=== PATIENT | female | born 1950 | race Two or more races ===

== ENCOUNTER 2019-01-15 11:20 | Inpatient (IN) | payer MEDICARE, BC ==
[~2019-01-15] VITALS: Ht 170.2 cm; Wt 73.5 kg
--- NOTE | 2019-01-15 17:30 | NUR ---
Admitted from [facility] for Intracranial/ Intraparenchymal Hemorrhage. Arrived in unit per destiny accompanied by EMT and sister. Not in any form of distress. Patient alert awake x4. NIHSS scale of 2. Not in any form of distress, no visual loss, headache, SOB or chest pains noted. With left upper arm weakness. Oriented to unit, therapy and use of call light. Routine admission care done. Informed Dr. Nathan of admission.
[2019-01-15] MEDS ORDERED: MAGNESIUM HYDROXIDE 30 ML LIQUID UDC PO PRN (18:00)
[2019-01-15] MEDS ORDERED: ALPR0.255 PO (18:51)
[2019-01-15] MEDS ORDERED: ACET-2154 PO (18:51)
[2019-01-15] MEDS ORDERED: CHOL50002 PO (18:51)
[2019-01-15] MEDS ORDERED: CALC-903 PO (18:51)
[2019-01-15] MEDS ORDERED: LEVE500T9 PO (18:51)
--- NOTE | 2019-01-15 19:00 | NUR ---
Received call back from Dr. Alonzo for medication reconciliation and Dr rowe to continue previous medications.
--- NOTE | 2019-01-15 19:00 | NUR ---
Received patient awake during initial rounds. Son at bedside. Denies any pain/discomforts at this time. Left sided weakness noted. safety measure and fall precaution maintained. Continue care as planned.
[2019-01-15] MEDS ORDERED: ACETAMINOPHEN 325 MG TABLET PO PRN (19:30)
[2019-01-15 20:35] VITALS: BP 128/79
[2019-01-15] MEDS: LEVETIRACETAM 500 MG TABLET PO SCH (20:42)
[2019-01-16 06:52] VITALS: BP 101/63
--- NOTE | 2019-01-16 06:59 | NUR ---
Shift End Report: Slept good. VS stable. No complaint presented all night. All needs attended and met. No significant event reported. Continue current rehab plan of care.
[2019-01-16 08:06] VITALS: BP 106/62
[2019-01-16] MEDS: LEVETIRACETAM 500 MG TABLET PO SCH ×3 (08:54→17:00)
[2019-01-16] MEDS: CALCIUM CARBONATE 600 MG TABLET PO SCH (08:54)
[2019-01-16] MEDS: CHOLECALCIFEROL 1,000 UNIT TABLET PO SCH (08:54)
[2019-01-16] MEDS ORDERED: CHOLECALCIFEROL 5000 UNIT PO SCH (09:00)
--- NOTE | 2019-01-16 09:13 | NUR ---
Received pt. in bed in no distress. A/OX4 verbally responsive and able to make her needs known. All due medications given and tolerated well. Pt. showered this AM. No new skin condition noted. No seizure activity noted, on Keppra. All pt. needs attended and met promptly. Safety measures in place. Call light and all frequently used items within pt. reach. Will continue to monitor accordingly.
[2019-01-16 17:04] VITALS: BP 90/58
--- NOTE | 2019-01-16 18:00 | NUR ---
Received clarification of order for Abdifatah from Dr. Diez. Order change from BID to Q12H with same dosage. All orders noted and carried out. Pt. made aware.
--- NOTE | 2019-01-16 18:13 | NUR ---
End of shift note: No significant change during this shift. All needs attended and met promptly. Safety measures in placed. Bed in low position, brake on, side rails up x2 as an enabler. Call light and all frequently used items within pt. reach. Will endorse to next shift accordingly.
--- NOTE | 2019-01-16 19:00 | NUR ---
Awake, in bed with HOB elevated. Denies any pain/discomforts at this time. LUE still weak but with good patients transporter noted. Daughter at bedside. safety measure and fall precaution maintained. Continue care as planned.
[2019-01-16 19:26] VITALS: BP 118/64
[2019-01-16] MEDS: LEVETIRACETAM 250 MG TABLET PO SCH (20:26)
[2019-01-16] MEDS ORDERED: LEVETIRACETAM 500 MG TABLET PO SCH (21:00)
[2019-01-17 05:44] VITALS: BP 103/67
--- NOTE | 2019-01-17 05:51 | NUR ---
Shift End Report: VSS. Slept good. No complaint presented all night. All needs attended and met. NO significant event reported. Continue current rehab plan of care.
[2019-01-17] MEDS: CALCIUM CARBONATE 600 MG TABLET PO SCH (09:01)
[2019-01-17] MEDS: LEVETIRACETAM 250 MG TABLET PO SCH ×2 (09:01→20:38)
[2019-01-17] MEDS: CHOLECALCIFEROL 1,000 UNIT TABLET PO SCH (09:01)
[2019-01-17 09:04] VITALS: BP 101/47
--- NOTE | 2019-01-17 09:31 | NUR ---
Received pt. in bed in no distress. A/OX4 verbally responsive and able to make her needs known. All due medications given and tolerated well. PNo new skin condition noted. No seizure activity noted, on Keppra. Requesting Vit C 500 mg PO QD for supplement, will notify MD. All pt. needs attended and met promptly. Safety measures in place. Call light and all frequently used items within pt. reach. Will continue to monitor accordingly.
--- NOTE | 2019-01-17 10:27 | NUR ---
Received order Vit C 500 mg PO QD order from Dr. Nathan. Orders noted and carried out accordingly. Pt. made aware and thankful.
[2019-01-17 16:41] VITALS: BP 96/47
--- NOTE | 2019-01-17 18:07 | NUR ---
End of shift note: No significant change during this shift. Seen by Dr. Nathan this PM. All needs attended and met promptly. Safety measures in placed. Bed in low position, brake on, side rails up x2 as an enabler. Call light and all frequently used items within pt. reach. Will endorse to next shift accordingly.
--- NOTE | 2019-01-17 19:00 | NUR ---
Awake, watching TV at this time. Denies any pain/discomforts. Safety measure and afll precaution maintained. Continue care as planned.
[2019-01-17 19:35] VITALS: BP 103/67
--- NOTE | 2019-01-18 05:33 | NUR ---
Shift End Report: VS stable. Very needy. Slept intermittently. No complaint of pain/discomforts presented. All needs attended and met. No significant event reported all night. Continue current rehab plan of care.
[2019-01-18 06:33] VITALS: BP 101/63
[2019-01-18 07:58] LABS: BASOPHILS % (AUTO) 0.9 % (0.0-2.0); EOSINOPHILS # (AUTO) 0.2 K/uL (0.0-0.7); EOSINOPHILS % (AUTO) 3.3 % (0.0-7.0); HEMATOCRIT 43.2 % (31.2-41.9); HEMOGLOBIN 14.3 g/dL (10.9-14.3); LYMPHOCYTES # (AUTO) 1.9 K/uL (20.0-40.0); MEAN CORPUSCULAR HEMOGLOBIN 30.4 uug (24.7-32.8); MEAN CORPUSCULAR HGB CONC 33 g/dL (32.3-35.6); MEAN CORPUSCULAR VOLUME 91.8 fL (75.5-95.3); MONOCYTES # (AUTO) 0.3 K/uL (2.0-10.0); MONOCYTES % (AUTO) 7.1 % (0.0-11.0); NEUTROPHILS # (AUTO) 2.1 K/uL (1.8-8.9); NEUTROPHILS % (AUTO) 46.7 % (38.5-71.5); PLATELET COUNT (AUTO) 275 K/uL (179-408); RED BLOOD CELL COUNT(AUTO) 4.71 MIL/uL (3.63-4.92); WHITE BLOOD COUNT (AUTO) 4.5 K/uL (3.8-11.8)
--- NOTE | 2019-01-18 08:00 | NUR ---
Received patient, awake, alert x4. No pain noted. Not in any form of distress. On room air sating well. With baseline LOC. No new weakness, still with weakness over left upper arm. Assisted to bathroom, with stable gait using FWW.
[2019-01-18 08:09] LABS: CREATININE 0.7 mg/dL (0.6-1.3); POTASSIUM 4.6 mmol/L (3.5-5.1)
[2019-01-18 09:00] VITALS: BP 102/51
[2019-01-18] MEDS: CHOLECALCIFEROL 1,000 UNIT TABLET PO SCH (09:05)
[2019-01-18] MEDS: LEVETIRACETAM 250 MG TABLET PO SCH ×2 (09:05→20:32)
[2019-01-18] MEDS: CALCIUM CARBONATE 600 MG TABLET PO SCH (09:05)
[2019-01-18] MEDS: ASCORBIC ACID 500 MG TABLET PO SCH (09:05)
--- NOTE | 2019-01-18 10:10 | NUR ---
Up with physical therapy, tolerating well. No pain noted. No SOB or chest pains. Able to ambulate to rehab gym with front wheel walker with assist.
--- NOTE | 2019-01-18 16:02 | NUR ---
INDIVIDUALIZE PLAN OF CARE
[2019-01-18 17:00] VITALS: BP 121/58
[2019-01-18] MEDS: ALPRAZOLAM 0.25 MG TABLET PO PRN (18:53)
[2019-01-18 20:12] VITALS: BP 104/54
[2019-01-19] MEDS: ALPRAZOLAM 0.25 MG TABLET PO PRN ×2 (02:36→21:59)
--- NOTE | 2019-01-19 05:06 | NUR ---
received patient alert and oriented x4 OOB with walker to the BR. Voiding freely. needs attended. Denies any pain nor any discomfort. VSS. On fall precautions. Call pringle within reach. Siderails up for safety.
[2019-01-19 06:06] VITALS: BP 120/45
[2019-01-19 08:34] VITALS: BP 110/53
[2019-01-19] MEDS: ASCORBIC ACID 500 MG TABLET PO SCH (08:49)
[2019-01-19] MEDS: CHOLECALCIFEROL 1,000 UNIT TABLET PO SCH (08:49)
[2019-01-19] MEDS: LEVETIRACETAM 250 MG TABLET PO SCH ×2 (08:49→20:31)
[2019-01-19] MEDS: CALCIUM CARBONATE 600 MG TABLET PO SCH (08:50)
--- NOTE | 2019-01-19 09:30 | NUR ---
Received pt. in bed in no distress. A/OX4 verbally responsive and able to make her needs known. All due medications given and tolerated well. No new skin condition noted. No seizure activity noted, on Keppra. All pt. needs attended and met promptly. Safety measures in place. Call light and all frequently used items within pt. reach. Will continue to monitor accordingly.
--- NOTE | 2019-01-19 11:47 | NUR ---
INTERDISCIPLINARY TEAM CONFERENCE
[2019-01-19 16:14] VITALS: BP 90/57
[2019-01-19 20:08] VITALS: BP 115/59
[2019-01-19] MEDS: ACETAMINOPHEN ES 500 MG TABLET PO PRN (21:32)
[2019-01-20 05:00] VITALS: BP 116/74
--- NOTE | 2019-01-20 07:30 | NUR ---
PATIENT IS AWAKE, ALERT, ORIENTED X4, VERBALLY RESPONSIVE USING TOILET, NO SOB, NO ACUTE DISTRESS NOTED
[2019-01-20] MEDS: ACETAMINOPHEN ES 500 MG TABLET PO PRN (07:54)
[2019-01-20 08:00] VITALS: BP 117/58
[2019-01-20] MEDS: LEVETIRACETAM 250 MG TABLET PO SCH ×2 (08:51→20:42)
[2019-01-20] MEDS: CHOLECALCIFEROL 1,000 UNIT TABLET PO SCH (08:51)
[2019-01-20] MEDS: CALCIUM CARBONATE 600 MG TABLET PO SCH (08:51)
[2019-01-20] MEDS: ASCORBIC ACID 500 MG TABLET PO SCH (08:51)
--- NOTE | 2019-01-20 11:54 | NUR ---
PATIENT IS ALERT, ORIENTED X4, VERBALLY RESPONSIVE, NO SOB, RESP EVEN NONLABORED,SKIN WARM AND DRY TO TOUCH, TOLERATED MEALS AND MEDS WELL, PATIENT STATED LAST NIGHT IN THE BATHROOM WHILE SHE WAS TRYING TO MOVE AROUND AND WAS TRYING TO GET UP FROM TOILET, SLIGHTLY HIT HER RIGHT SIDE OF HEAD TO THE WALL, HOWEVER UPON ASSESSMENT, NO RAISED BUMP NOTED, AND PATIENT STATED SHE FEELS FINE. NO ACUTE DISTRESS NOTED.
--- NOTE | 2019-01-20 12:01 | NUR ---
PATIENT REQUESTED TO GET SHOWER, OFFERED TO GIVE HER SHOWER THREE TIMES, PATIENT KEPT SAYING LATER, SHE IS NOT READY ELLEN
--- NOTE | 2019-01-20 18:00 | NUR ---
patient is alert, oriented x4, verbally responsive, no sob,resp even nonlabored,skin warm and dry to touch, patient calls for the assistance to the bathroom, provided assistance as needed through out the day, requested shower, stated that she wants her shower first patient stated 10am, then she said no, later, offered again and patient again stated not yet because she feels tired, shower given around 3pm, patient calls nurse in her room frequently such as to fix her pillow, take her shocks off and then put her shocks on again, fix my blanket, move the table here and then there, put my clothes in the closet, fix my closet, patient states that stay very close to me when I am in the bathroom, put the toilet sheet on the toilet and tear the paper the way she wants etc, all the needs attended timely. call light with in reach all the time.
[2019-01-20 20:00] VITALS: BP 119/53
--- NOTE | 2019-01-20 20:00 | NUR ---
Received patient awake and alert. Patient is A/Ox4. No signs of acute distress noted. No complaints of pain or SOB. Standby assist given when patient goes to restroom with walker, noted with some left sided weakness. Safety measures initiated. Bed is low and locked, call light within reach. Will continue to monitor.
[2019-01-21] MEDS: ALPRAZOLAM 0.25 MG TABLET PO PRN (01:32)
[2019-01-21 05:35] VITALS: BP 107/50
--- NOTE | 2019-01-21 05:47 | NUR ---
Patient slept well throughout shift. No acute distress noted. Patient ambulated to restroom x4. All needs were met. Medication given as ordered. Safety measures given.
--- NOTE | 2019-01-21 07:30 | NUR ---
patient is in bed awake no sob, no acute distress noted
[2019-01-21 08:00] VITALS: BP 125/65
[2019-01-21] MEDS: ASCORBIC ACID 500 MG TABLET PO SCH (08:35)
[2019-01-21] MEDS: LEVETIRACETAM 250 MG TABLET PO SCH ×2 (08:36→20:43)
[2019-01-21] MEDS: CHOLECALCIFEROL 1,000 UNIT TABLET PO SCH (08:36)
[2019-01-21] MEDS: CALCIUM CARBONATE 600 MG TABLET PO SCH (08:36)
[2019-01-21 16:00] VITALS: BP 110/62
--- NOTE | 2019-01-21 16:45 | NUR ---
patient is alert, oriented x4, verbally responsive, no sob,respirations are even nonlabored,skin warm and dry to touch, patient denied any pain, no acute distress noted, assisted to the bathroom as needed, good pericare provided, patient is very needy, calls to nurses station frequently even the nurse just left the room and needs met, yerahs nurses name when sees them passing by and states, " hey Excuse me come here" kept safe and all needs attended timely.
--- NOTE | 2019-01-21 18:07 | NUR ---
paged dr yin for patient request to have xanax twice a day as needed instead of once a day. waiting for call back.
--- NOTE | 2019-01-21 18:29 | NUR ---
received order from dr mann to give xanax 0.25mg one time now.
[2019-01-21] MEDS ORDERED: ALPRAZOLAM 0.25 MG TABLET PO ONE (18:30)
[2019-01-21 19:36] VITALS: BP 101/54
[2019-01-22 06:36] VITALS: BP 113/59
--- NOTE | 2019-01-22 06:42 | NUR ---
aaox4 OOB with walker with supervision to the BR. Voiding frequently without any difficulty. VSS. Needs attended. Left side weakness noted. Tolerated po meds well. No complaints of pain nor any discomfort.Fall precautions maintained. Siderails up for safety.Call pringle within reach.
[2019-01-22 08:30] VITALS: BP 110/60
[2019-01-22] MEDS: CHOLECALCIFEROL 1,000 UNIT TABLET PO SCH (08:45)
[2019-01-22] MEDS: CALCIUM CARBONATE 600 MG TABLET PO SCH (08:45)
[2019-01-22] MEDS: LEVETIRACETAM 250 MG TABLET PO SCH ×2 (08:45→20:34)
[2019-01-22] MEDS: ASCORBIC ACID 500 MG TABLET PO SCH (08:45)
--- NOTE | 2019-01-22 09:00 | NUR ---
Received pt. in bed in no distress. A/OX4 verbally responsive and able to make her needs known. All due medications given and tolerated well. No new skin condition noted. Voiding well with BRP, ambulatory with FWW and standby assist. No seizure activity noted, on Keppra. All pt. needs attended and met promptly. Safety measures in place. Call light and all frequently used items within pt. reach. Will continue to monitor accordingly.
[2019-01-22 16:08] VITALS: BP 129/59
--- NOTE | 2019-01-22 18:25 | NUR ---
End of shift note: No significant change during this shift. Pt. seen by Dr. Nathan this PM. All needs attended and met promptly. Safety measures in placed. Bed in low position, brake on, side rails up x2 as an enabler. Call light and all frequently used items within pt. reach. Will endorse to next shift accordingly.
[2019-01-22 19:58] VITALS: BP 112/73
--- NOTE | 2019-01-23 04:20 | NUR ---
Resting in bed upon initial rounds. aaox4 OOB to the BR with walker with standby assist. Needs attended. Left side weakness noted. Fall precautions maintained. Call pringle within reach. VSS. Tolerated po meds well.On Kepra. no seizure activity noted. Kept comfortable. Siderails up for safety. No complaints presented during the shift.
[2019-01-23 06:20] VITALS: BP 106/61
[2019-01-23 08:30] VITALS: BP 117/46
[2019-01-23] MEDS: CALCIUM CARBONATE 600 MG TABLET PO SCH (08:30)
[2019-01-23] MEDS: CHOLECALCIFEROL 1,000 UNIT TABLET PO SCH (08:30)
[2019-01-23] MEDS: ASCORBIC ACID 500 MG TABLET PO SCH (08:30)
[2019-01-23] MEDS: LEVETIRACETAM 250 MG TABLET PO SCH ×2 (08:30→20:25)
[2019-01-23 16:32] VITALS: BP 120/64
--- NOTE | 2019-01-23 19:10 | NUR ---
Awake in bed during initial rounds. Vert talkative, Denies any pain/discomforts at this time but complaining of feeling so tired. Safety measure and fall precaution maintained. Continue care as planned.
[2019-01-23 20:00] VITALS: BP 134/57
[2019-01-23] MEDS: ACETAMINOPHEN ES 500 MG TABLET PO PRN (22:38)
--- NOTE | 2019-01-23 22:39 | NUR ---
Medicated with Tylenol 500mg 1 tab for complaint of legs discomforts. Will monitor.
[2019-01-24 06:27] VITALS: BP 104/64
[2019-01-24] MEDS: LEVETIRACETAM 250 MG TABLET PO SCH ×2 (08:22→20:41)
[2019-01-24] MEDS: CALCIUM CARBONATE 600 MG TABLET PO SCH (08:22)
[2019-01-24] MEDS: CHOLECALCIFEROL 1,000 UNIT TABLET PO SCH (08:22)
[2019-01-24] MEDS: ASCORBIC ACID 500 MG TABLET PO SCH (08:22)
[2019-01-24 09:19] VITALS: BP 98/58
--- NOTE | 2019-01-24 09:25 | NUR ---
Received pt sitting at edge of bed in no distress. A/OX4 verbally responsive and able to make her needs known. All due medications given and tolerated well. No new skin condition noted. No seizure activity noted, on Keppra. Ambulatory with use of FWW, standby assist. All pt. needs attended and met promptly. Safety measures in place. Call light and all frequently used items within pt. reach. Will continue to monitor accordingly.
[2019-01-24 16:00] VITALS: BP 103/46
--- NOTE | 2019-01-24 18:08 | NUR ---
End of shift note: No significant change during this shift. All needs attended and met promptly. Pt. requesting to ambulate by herself, educated pt. the importance having someone for standby assist due to her unsteady gait. Pt. verbalized clear understanding. Re-emphasized use of call light system for assistance. Safety measures in placed. Bed in low position, brake on, side rails up x2 as an enabler. Call light and all frequently used items within pt. reach. Will endorse to next shift accordingly.
[2019-01-24 19:40] VITALS: BP 100/54
--- NOTE | 2019-01-24 19:43 | NUR ---
Patient received sitting in bed, AAO x4. Able to make needs known. No acute distress or SOB noted. On room air. No Complain of pain at this time. Physical assessment done. stroke assessment performed. Safety measures observed. Fall precaution maintained. Bed in low position, side rails up x2 for safety, brake and alarm on. call light and personal belongings within reach. Continue to monitor.
[2019-01-24] MEDS: ACETAMINOPHEN ES 500 MG TABLET PO PRN (23:05)
[2019-01-25 06:56] VITALS: BP 93/49
--- NOTE | 2019-01-25 07:05 | NUR ---
End of the shift note Patient was stable throughout the shift and has a good sleep last night. No acute distress or SOB noted. On room air. No Complain of pain. All due medication given as ordered. Checked Vital Signs. Physical assessment done. Dressing changed. Assisted her to the bathroom as needed. Safety measures observed. Fall precaution maintained. Bed in low position, side rails up x2 for safety, brake and alarm on. call light and personal belongings within reach. Continue to monitor and will endorse to the day shift nurse accordingly.
[2019-01-25] MEDS: ASCORBIC ACID 500 MG TABLET PO SCH (08:26)
[2019-01-25] MEDS: CHOLECALCIFEROL 1,000 UNIT TABLET PO SCH (08:26)
[2019-01-25] MEDS: LEVETIRACETAM 250 MG TABLET PO SCH ×2 (08:28→20:49)
[2019-01-25] MEDS: CALCIUM CARBONATE 600 MG TABLET PO SCH (08:28)
[2019-01-25 09:00] VITALS: BP 109/62
--- NOTE | 2019-01-25 10:11 | NUR ---
Patient noted being assisted to restroom at this time, no complaints of pain, no signs of distress noted, assisted to bed side for breakfast, took all AM medications, call light in reach, bed locked and in lowest position
[2019-01-25 17:00] VITALS: BP 112/66
--- NOTE | 2019-01-25 19:05 | NUR ---
Awake during initial rounds. Very pleasant and cooperative with care. Denies any pain/discomforts at this time. Safety measure and fall precaution maintained. Continue care as planned.
[2019-01-25 19:51] VITALS: BP 121/42
[2019-01-26] MEDS: ACETAMINOPHEN ES 500 MG TABLET PO PRN (04:33)
--- NOTE | 2019-01-26 04:34 | NUR ---
Medicated with Tylenol ES for complaint of Sinus pain. Will monitor.
[2019-01-26 06:12] VITALS: BP 105/50
--- NOTE | 2019-01-26 06:20 | NUR ---
Shift End Report: Slept in between care. Assisted and attended all needs. No fall/injury reported. Pain medication effective. No further complaint presented. No significant event reported. Continue current rehab of care.
--- NOTE | 2019-01-26 08:30 | NUR ---
Received patient, awake, alert x4, resting in bed. No pain noted. Not in any form of distress, no new weakness noted with baseline LOC. No headache noted. Up for occupational therapy, morning care done.
[2019-01-26 09:00] VITALS: BP 121/58
[2019-01-26] MEDS: LEVETIRACETAM 250 MG TABLET PO SCH (09:20)
[2019-01-26] MEDS: CHOLECALCIFEROL 1,000 UNIT TABLET PO SCH (09:20)
[2019-01-26] MEDS: CALCIUM CARBONATE 600 MG TABLET PO SCH (09:20)
[2019-01-26] MEDS: ASCORBIC ACID 500 MG TABLET PO SCH (09:20)
--- NOTE | 2019-01-26 13:00 | NUR ---
Discharge order obtained from Dr Nathan. Discharge instructions and education/packet discussed and given to patient. Instructed to take medications as prescribed. Instructed to ambulate with front wheel walker. Instructed importance follow-up with Dr Villegas on 01/31/19 at 12:[address] Eldridge at 02/14/19 at 11:30. Routine discharge care done. Went home per wheel chair in stable condition, no complaints of pain, no headaches with baseline LOC. Went home accompanied by Adriana, daughter via private transport.
== END 2019-01-26 13:00 | disposition home health service (06) | DRG 57 ==
PROVIDERS: ADMIT Physical Medicine & Rehabilitation Pain Medicine; ATTEND Physical Medicine & Rehabilitation Pain Medicine
DX: I69.154 Hemiplegia and hemiparesis following nontraumatic intracerebral hemorrhage affecting left non-dominant side (principal); I10 Essential (primary) hypertension; Z86.711 Personal history of pulmonary embolism; Z86.718 Personal history of other venous thrombosis and embolism; S82.002D Unspecified fracture of left patella, subsequent encounter for closed fracture with routine healing; X58.XXXD Exposure to other specified factors, subsequent encounter; T45.515D Adverse effect of anticoagulants, subsequent encounter
CPT/HCPCS: 36415; 70030-TC; 83735; 84100; 85025; 92523; 92526; 92610; 97110; 97112; 97116; 97165; 97530; 97535; A4663; A9150